=== PATIENT | female | born 1960 | race Caucasian/White ===

== ENCOUNTER 2020-10-21 18:24 | Inpatient (IN) ==
[2020-10-21] MEDS ORDERED: Ipratropium/Albuterol Neb 3 ML ONE (18:29)
[2020-10-21] MEDS ORDERED: methylPREDNISolone 125 MG/2 ML VIAL IVP ONE (18:32)
[2020-10-21] MEDS ORDERED: 0.9 % Sodium Chloride 1,000 ML IVC ONE ×2 (18:32→19:33)
[2020-10-21] MEDS ORDERED: Ipratropium/Albuterol Neb 3 ML IH ONE (18:32)
[2020-10-21] MEDS ORDERED: cefTRIAXone 1,000 MG in Water for inj. (sterile) 10 ML IVP ONE (18:32)
[2020-10-21] MEDS ORDERED: Azithromycin 500 MG in 0.9 % Sodium Chloride 250 ML IVPB ONE (18:32)
[2020-10-21 19:01] LABS: Hematocrit 30.3 % (35.3-44.9); Mean Corpuscular Hemoglobin 27.7 pg (28.0-33.3); Mean Corpuscular Volume 83.9 fL (83.0-100.0); Mean Platelet Volume 9.3 fL (9.4-12.4); Platelet Count 340 K/mcL (140-400); Red Blood Count 3.61 M/mcL (3.82-4.97); Red Cell Distribution Width 14.1 % (11.5-14.5); White Blood Count 23.2 K/mcL (4.3-11.1)
[2020-10-21 19:13] LABS: INR 1.5; Prothrombin Time 17.4 Seconds (9.4-12.1)
[2020-10-21 19:16] LABS: Activated Partial Thrombo Time 29.9 Seconds (26.0-36.0)
[2020-10-21 19:23] LABS: Calcium 8.6 mg/dL (8.6-10.3); Potassium 3.9 mEq/L (3.5-5.1)
[2020-10-21 19:26] LABS: Lymphocytes # 0.5 K/mcL (0.6-4.6); Monocytes # 0.5 K/mcL (0.0-1.3); Neutrophils # 20.9 K/mcL (1.6-8.9)
[2020-10-21 19:28] LABS: Troponin I 0.53 ng/mL (< 0.04)
[2020-10-21] MEDS ORDERED: Acetaminophen 325 MG TABLET PO ONE (19:32)
[2020-10-21] MEDS ORDERED: Isovue-370 500 ML BOTTLE IVP ONE (19:39)
[2020-10-21] MEDS ORDERED: Furosemide 40 MG/4 ML VIAL IVP ONE (19:45)
[2020-10-21] MEDS ORDERED: Aspirin 325 MG TABLET PO ONE (19:48)
[2020-10-21] MEDS ORDERED: *HR* Heparin 5,000 UNIT/ML VIAL IVP PRN (19:56)
[2020-10-21] MEDS ORDERED: *HR* Heparin 5,000 UNIT/ML VIAL IVP ONE (19:56)
[2020-10-21 20:18] LABS: Albumin 3.3 g/dL (3.5-5.7); Albumin/Globulin Ratio 0.7 (1.1-2.2); Bilirubin,Direct 0.2 mg/dL (0.0-0.2); Bilirubin,Indirect 0.7 mg/dL (0.0-1.0); Bilirubin,Total 0.9 mg/dL (0.3-1.0); Globulin 4.5 g/dL (2.4-3.5); Total Protein 7.8 g/dL (6.4-8.9)
[2020-10-21 20:35] LABS: Thyroid Stimulating Hormone 1.009 mcIU/mL (0.340-5.600)
[2020-10-21] MEDS: Heparin 25,000UNIT/250ML 1/2NS 25,000 UNIT/250 ML IV.SOLN IVC SCH (21:23)
[2020-10-21] MEDS: 0.9 % Sodium Chloride 1,000 ML IVC SCH (21:42)
[2020-10-21] MEDS ORDERED: Naloxone 0.4 MG/ML INJ IVP PRN (21:46)
[2020-10-21] MEDS ORDERED: Ondansetron 4 MG/2 ML VIAL IVP PRN (21:46)
[2020-10-21] MEDS ORDERED: Ipratropium/Albuterol Neb 3 ML IH PRN (21:59)
[2020-10-21 23:04] LABS: Hematocrit 29.8 % (35.3-44.9); Hemoglobin 9.4 g/dL (11.5-15.4); Mean Corpuscular HGB Conc 31.5 g/dL (31.6-35.5); Mean Corpuscular Hemoglobin 27.3 pg (28.0-33.3); Mean Corpuscular Volume 86.6 fL (83.0-100.0); Mean Platelet Volume 9.8 fL (9.4-12.4); Platelet Count 310 K/mcL (140-400); Red Blood Count 3.44 M/mcL (3.82-4.97); Red Cell Distribution Width 14.4 % (11.5-14.5); White Blood Count 24.3 K/mcL (4.3-11.1)
[2020-10-21] MEDS ORDERED: Perflutren Lipid Microsphere 1.3 ML in 0.9 % Sodium Chloride 8.7 ML IVP PRN (23:10)
[2020-10-21 23:12] LABS: Magnesium 1.7 mg/dL (1.6-2.6); Phosphorous 3.6 mg/dL (2.7-4.5)
[2020-10-21 23:13] LABS: Calcium 8.3 mg/dL (8.6-10.3); Potassium 3.9 mEq/L (3.5-5.1)
[2020-10-21] MEDS ORDERED: 0.9 % Sodium Chloride 500 ML IVC ONE (23:21)
[2020-10-21 23:28] LABS: Adenovirus Not Detected (Not Detect); Bordetella Pertussis Not Detected (Not Detect); Chlamydophila pneumoniae Not Detected (Not Detect); Coronavirus 229E Not Detected (Not Detect); Coronavirus HKU1 Not Detected (Not Detect); Coronavirus NL63 Not Detected (Not Detect); Coronavirus OC43 Not Detected (Not Detect); Human Metapneumovirus Not Detected (Not Detect); Human Rhinovirus/Enterovirus Not Detected (Not Detect); Influenza A Subtype 2009 H1 Not Detected (Not Detect); Influenza B Not Detected (Not Detect); Mycoplasma pneumoniae Not Detected (Not Detect); Parainfluenza Virus 1 Not Detected (Not Detect); Parainfluenza Virus 2 Not Detected (Not Detect); Parainfluenza Virus 3 Not Detected (Not Detect); Parainfluenza Virus 4 Not Detected (Not Detect); Respiratory Syncytial Virus Not Detected (Not Detect); SARS-CoV-2 Not Detected (Not Detect)
[2020-10-21] MEDS: Cefepime HCl 1,000 MG in Water for inj. (sterile) 10 ML IVP SCH (23:44)
[2020-10-21] MEDS: Acetaminophen 325 MG TABLET PO PRN (23:55)
[2020-10-22] MEDS ORDERED: Vancomycin 1,250 MG/262.5 ML IV.SOLN IVPB ONE
[2020-10-22] MEDS ORDERED: Morphine Sulfate 2 MG/ML SYRINGE IVP ONE (00:15)
[2020-10-22 02:41] LABS: Bilirubin,Urine Negative (Negative); Blood,Urine Negative (Negative); Clarity,Urine Clear (Clear); Color,Urine Yellow (Yellow); Glucose,Urine (UA) Normal (Normal); Ketones,Urine Negative (Negative); Leukocyte Esterase,Urine Negative (Negative); Nitrite,Urine Negative (Negative); Protein,Urine Negative (Neg-Trace); Specific Gravity,Urine > 1.030 (1.010-1.025); Urobilinogen,Urine Normal (Normal)
[2020-10-22 02:50] LABS: Creatinine,Urine 97 mg/dL; Sodium, Urine 18.4 mEq/L
[2020-10-22 02:52] LABS: Amphetamine Screen,Urine Negative ng/mL (Cutoff=1000); Barbiturate Screen,Urine Negative ng/mL (Cutoff=200); Benzodiazepines Screen,Urine Positive ng/mL (Cutoff=200); Cannabinoid Screen,Urine Negative ng/mL (Cutoff = 50); Cocaine Screen,Urine Negative ng/mL (Cutoff= 300); Opiate Screen,Urine Positive ng/mL (Cutoff=300); Phencyclidine Screen,Urine Negative ng/mL (Cutoff=25)
[2020-10-22 03:43] LABS: Red Cell Distribution Width 14.4 % (11.5-14.5)
[2020-10-22 03:44] LABS: Hematocrit 28.5 % (35.3-44.9); Hemoglobin 9.2 g/dL (11.5-15.4); Mean Corpuscular HGB Conc 32.3 g/dL (31.6-35.5); Mean Corpuscular Hemoglobin 27.3 pg (28.0-33.3); Mean Corpuscular Volume 84.6 fL (83.0-100.0); Mean Platelet Volume 9.6 fL (9.4-12.4); Platelet Count 303 K/mcL (140-400); Red Blood Count 3.37 M/mcL (3.82-4.97); White Blood Count 26.6 K/mcL (4.3-11.1)
[2020-10-22 03:53] LABS: Troponin I 0.84 ng/mL (< 0.04)
[2020-10-22 04:10] LABS: Albumin 3.1 g/dL (3.5-5.7); Albumin/Globulin Ratio 0.8 (1.1-2.2); Bilirubin,Total 0.5 mg/dL (0.3-1.0); Calcium 8.1 mg/dL (8.6-10.3); Globulin 4.1 g/dL (2.4-3.5); Total Protein 7.2 g/dL (6.4-8.9)
[2020-10-22] MEDS: 0.9 % Sodium Chloride 1,000 ML IVC SCH ×3 (05:02→21:49)
[2020-10-22] MEDS: Acetaminophen 325 MG TABLET PO PRN ×2 (05:35→22:12)
[2020-10-22] MEDS: Cefepime HCl 1,000 MG in Water for inj. (sterile) 10 ML IVP SCH (07:26)
[2020-10-22] MEDS: Morphine Sulfate 2 MG/ML SYRINGE IVP PRN ×4 (08:45→20:38)
[2020-10-22] MEDS: cefTRIAXone 2,000 MG in Water for inj. (sterile) 20 ML IVP SCH (08:45)
[2020-10-22 09:26] LABS: Calcium 8.2 mg/dL (8.6-10.3); Potassium 3.9 mEq/L (3.5-5.1)
[2020-10-22] MEDS: Aspirin Enteric Coated 81 MG Tablet PO SCH (09:46)
[2020-10-22] MEDS: *HR* HYDROcodone/Acet 5/325 mg TABLET PO PRN ×2 (10:53→16:56)
[2020-10-22 11:26] LABS: Folate > 22.3 ng/mL (3.0-16.0); Vitamin B12 614 pg/mL (250-1100)
[2020-10-22] MEDS: Ondansetron 4 MG/2 ML VIAL IVP PRN (13:59)
[2020-10-22] MEDS ORDERED: Vancomycin 1,250 MG/262.5 ML IV.SOLN IVPB SCH (18:00)
[2020-10-22] MEDS: DilTIAZem 50 MG/50 ML IV.SOLN IVC SCH (18:35)
[2020-10-22 19:05] LABS: ABG Base Excess -2 mEq/L (-2 to 3); ABG HCO3 22 mEq/L (21-27); ABG Oxygen Saturation 97 % (95-98); ABG PCO2 37 mmHg (35-45); ABG PH 7.39 pH Units (7.32-7.45); ABG PO2 94 mmHg (85-104); ABG TCO2 24 mEq/L (20-26); Blood Gas Modality ST
[2020-10-22] MEDS ORDERED: Azithromycin 500 MG in 0.9 % Sodium Chloride 250 ML IVPB SCH (21:00)
[2020-10-22] MEDS: Dexmedetomidine HCl 400 MCG/100 ML MLS IVC SCH (21:08)
[2020-10-22] MEDS: Heparin 25,000UNIT/250ML 1/2NS 25,000 UNIT/250 ML IV.SOLN IVC SCH (21:12)
[2020-10-23] MEDS: DilTIAZem 50 MG/50 ML IV.SOLN IVC SCH ×4 (00:35→23:07)
[2020-10-23] MEDS: Ondansetron 4 MG/2 ML VIAL IVP PRN (02:33)
[2020-10-23] MEDS: 0.9 % Sodium Chloride 1,000 ML IVC SCH ×3 (06:21→21:58)
[2020-10-23] MEDS: Morphine Sulfate 2 MG/ML SYRINGE IVP PRN ×4 (06:31→20:24)
[2020-10-23 08:45] LABS: Platelet Count 270 K/mcL (140-400); Red Cell Distribution Width 14.7 % (11.5-14.5)
[2020-10-23 08:47] LABS: Hematocrit 29.3 % (35.3-44.9); Hemoglobin 9.3 g/dL (11.5-15.4); Mean Corpuscular HGB Conc 31.7 g/dL (31.6-35.5); Mean Corpuscular Hemoglobin 27.8 pg (28.0-33.3); Mean Corpuscular Volume 87.5 fL (83.0-100.0); Mean Platelet Volume 10.1 fL (9.4-12.4); Red Blood Count 3.35 M/mcL (3.82-4.97); White Blood Count 29.1 K/mcL (4.3-11.1)
[2020-10-23] MEDS: cefTRIAXone 2,000 MG in Water for inj. (sterile) 20 ML IVP SCH (09:06)
[2020-10-23] MEDS: Aspirin Enteric Coated 81 MG Tablet PO SCH (09:06)
[2020-10-23 09:07] LABS: BUN/Creatinine Ratio 34 (6-26); Blood Urea Nitrogen 24 mg/dL (8-23); Calcium 8.2 mg/dL (8.6-10.3); Carbon Dioxide 22 mEq/L (23-29); Chloride 106 mEq/L (98-107); Glucose 89 mg/dL (70-105); Magnesium 2.7 mg/dL (1.6-2.6); Osmolality,Calculated 282 (280-300); Potassium 4.3 mEq/L (3.5-5.1); Sodium 134 mEq/L (136-145); eGFR For African Americans > 60 (> 60); eGFR For Non-African Americans > 60 (> 60)
[2020-10-23 09:08] LABS: Lymphocytes # 1.5 K/mcL (0.6-4.6); Monocytes # 0.3 K/mcL (0.0-1.3); Neutrophils # 27.4 K/mcL (1.6-8.9); Platelet Estimate Normal (Normal)
[2020-10-23] MEDS ORDERED: Calcium Gluconate 1gm/50mL 1 GM/50 ML BAG IVPB PRN (10:55)
[2020-10-23] MEDS ORDERED: Potassium Phosphate 44 MEQ in 0.9 % Sodium Chloride 250 ML IVPB PRN (10:55)
[2020-10-23] MEDS: Acetaminophen 325 MG TABLET PO PRN ×3 (11:06→23:02)
[2020-10-23] MEDS: *HR* Heparin 5,000 UNIT/ML VIAL IVP PRN ×2 (13:26→23:04)
[2020-10-23] MEDS: Vancomycin 1,250 MG/262.5 ML IV.SOLN IVPB SCH (13:50)
[2020-10-23 13:55] LABS: Hematocrit 27.1 % (35.3-44.9); Hemoglobin 8.5 g/dL (11.5-15.4); Mean Corpuscular HGB Conc 31.4 g/dL (31.6-35.5); Mean Corpuscular Hemoglobin 27.2 pg (28.0-33.3); Mean Corpuscular Volume 86.6 fL (83.0-100.0); Mean Platelet Volume 10.5 fL (9.4-12.4); Platelet Count 278 K/mcL (140-400); Red Blood Count 3.13 M/mcL (3.82-4.97); Red Cell Distribution Width 14.8 % (11.5-14.5); White Blood Count 26.6 K/mcL (4.3-11.1)
[2020-10-23 14:01] LABS: BUN/Creatinine Ratio 33 (6-26); Blood Urea Nitrogen 22 mg/dL (8-23); Carbon Dioxide 17 mEq/L (23-29); Chloride 107 mEq/L (98-107); Glucose 121 mg/dL (70-105); Osmolality,Calculated 279 (280-300); Sodium 132 mEq/L (136-145); eGFR For African Americans > 60 (> 60); eGFR For Non-African Americans > 60 (> 60)
[2020-10-23 14:32] LABS: Hypochromasia Present (Not Present); Lymphocytes # 2.1 K/mcL (0.6-4.6); Neutrophils # 24.5 K/mcL (1.6-8.9); Platelet Estimate Normal (Normal)
[2020-10-23 14:33] LABS: Anisocytosis 1+ (Not Present)
[2020-10-23] MEDS: Heparin 25,000UNIT/250ML 1/2NS 25,000 UNIT/250 ML IV.SOLN IVC SCH (22:58)
[2020-10-23] MEDS: Dexmedetomidine HCl 400 MCG/100 ML MLS IVC SCH (23:22)
[2020-10-24] MEDS: Morphine Sulfate 2 MG/ML SYRINGE IVP PRN ×6 (01:11→21:06)
[2020-10-24] MEDS: Vancomycin 1,250 MG/262.5 ML IV.SOLN IVPB SCH (02:37)
[2020-10-24 03:18] LABS: Basophils % 0.1 %; Eosinophils % 0.2 %; Hematocrit 28.8 % (35.3-44.9); Hemoglobin 9.1 g/dL (11.5-15.4); Immature Granulocytes % 0.6 % (0-4); Lymphocytes # 1.1 K/mcL (0.6-4.6); Lymphocytes % 4.4 %; Mean Corpuscular HGB Conc 31.6 g/dL (31.6-35.5); Mean Corpuscular Hemoglobin 27.5 pg (28.0-33.3); Mean Platelet Volume 10.2 fL (9.4-12.4); Monocytes # 0.7 K/mcL (0.0-1.3); Monocytes % 2.9 %; Neutrophils # 22.3 K/mcL (1.6-8.9); Platelet Count 299 K/mcL (140-400); Red Blood Count 3.31 M/mcL (3.82-4.97); Red Cell Distribution Width 14.8 % (11.5-14.5); Segmented Neutrophils % 91.8 %; White Blood Count 24.3 K/mcL (4.3-11.1)
[2020-10-24 03:26] LABS: Eosinophils # 0.1 K/mcL (0.0-0.6)
[2020-10-24 03:41] LABS: BUN/Creatinine Ratio 27 (6-26); Blood Urea Nitrogen 14 mg/dL (8-23); Carbon Dioxide 20 mEq/L (23-29); Chloride 106 mEq/L (98-107); Glucose 85 mg/dL (70-105); Osmolality,Calculated 276 (280-300); Potassium 3.7 mEq/L (3.5-5.1); Sodium 133 mEq/L (136-145); eGFR For African Americans > 60 (> 60); eGFR For Non-African Americans > 60 (> 60)
[2020-10-24 03:48] LABS: Anisocytosis 1+ (Not Present); Platelet Estimate Normal (Normal)
[2020-10-24] MEDS: Dexmedetomidine HCl 400 MCG/100 ML MLS IVC SCH ×2 (05:37→06:45)
[2020-10-24] MEDS: 0.9 % Sodium Chloride 1,000 ML IVC SCH (06:45)
[2020-10-24] MEDS: cefTRIAXone 2,000 MG in Water for inj. (sterile) 20 ML IVP SCH (08:32)
[2020-10-24] MEDS: Acetaminophen 325 MG TABLET PO PRN ×3 (08:32→19:24)
[2020-10-24] MEDS: Aspirin Enteric Coated 81 MG Tablet PO SCH (08:32)
[2020-10-24] MEDS: DilTIAZem 50 MG/50 ML IV.SOLN IVC SCH (08:33)
[2020-10-24] MEDS ORDERED: Morphine Sulfate 2 MG/ML SYRINGE IVP ONE (12:46)
[2020-10-24 13:46] LABS: BUN/Creatinine Ratio 21 (6-26); Blood Urea Nitrogen 10 mg/dL (8-23); Carbon Dioxide 20 mEq/L (23-29); Chloride 106 mEq/L (98-107); Glucose 88 mg/dL (70-105); Osmolality,Calculated 274 (280-300); Potassium 3.6 mEq/L (3.5-5.1); Sodium 133 mEq/L (136-145); eGFR For African Americans > 60 (> 60); eGFR For Non-African Americans > 60 (> 60)
[2020-10-24] MEDS: *HR* Heparin 5,000 UNIT/ML VIAL SQ SCH (16:20)
[2020-10-24] MEDS: Doxycycline 100 MG in 0.9 % Sodium Chloride Mini Bag 100 ML IVPB SCH (17:50)
[2020-10-25] MEDS: *HR* Heparin 5,000 UNIT/ML VIAL SQ SCH ×4 (00:22→23:04)
[2020-10-25] MEDS: Acetaminophen 325 MG TABLET PO PRN ×4 (01:02→20:54)
[2020-10-25] MEDS: Morphine Sulfate 2 MG/ML SYRINGE IVP PRN ×2 (01:12→06:02)
[2020-10-25 04:47] LABS: VBG Ionized Calcium 1.23 mmol/L (1.15-1.35)
[2020-10-25 05:06] LABS: BUN/Creatinine Ratio 21 (6-26); Blood Urea Nitrogen 9 mg/dL (8-23); Calcium 8.3 mg/dL (8.6-10.3); Carbon Dioxide 22 mEq/L (23-29); Chloride 106 mEq/L (98-107); Glucose 96 mg/dL (70-105); Osmolality,Calculated 275 (280-300); Phosphorous 2.4 mg/dL (2.7-4.5); Potassium 3.5 mEq/L (3.5-5.1); Sodium 133 mEq/L (136-145); eGFR For African Americans > 60 (> 60); eGFR For Non-African Americans > 60 (> 60)
[2020-10-25 05:09] LABS: White Blood Count 10.7 K/mcL (4.3-11.1)
[2020-10-25 05:10] LABS: Red Blood Count 2.91 M/mcL (3.82-4.97)
[2020-10-25 05:11] LABS: Basophils % 0.2 %; Eosinophils # 0.2 K/mcL (0.0-0.6); Eosinophils % 1.5 %; Hematocrit 24.5 % (35.3-44.9); Immature Granulocytes % 0.7 % (0-4); Lymphocytes # 1.2 K/mcL (0.6-4.6); Lymphocytes % 11.1 %; Mean Corpuscular HGB Conc 32.7 g/dL (31.6-35.5); Mean Corpuscular Hemoglobin 27.5 pg (28.0-33.3); Mean Corpuscular Volume 84.2 fL (83.0-100.0); Monocytes # 0.9 K/mcL (0.0-1.3); Monocytes % 8.2 %; Neutrophils # 8.4 K/mcL (1.6-8.9); Platelet Count 289 K/mcL (140-400); Red Cell Distribution Width 14.6 % (11.5-14.5); Segmented Neutrophils % 78.3 %
[2020-10-25] MEDS: Doxycycline 100 MG in 0.9 % Sodium Chloride Mini Bag 100 ML IVPB SCH ×2 (05:56→18:29)
[2020-10-25] MEDS: Aspirin Enteric Coated 81 MG Tablet PO SCH (08:10)
[2020-10-25] MEDS: cefTRIAXone 2,000 MG in Water for inj. (sterile) 20 ML IVP SCH (08:12)
[2020-10-25 12:08] LABS: Potassium 3.7 mEq/L (3.5-5.1)
[2020-10-25] MEDS: *HR* HYDROcodone/Acet 5/325 mg TABLET PO PRN (15:50)
[2020-10-25] MEDS: Diclofenac Sodium (DR) 75 MG TABLET.DR PO SCH ×2 (16:44→20:55)
[2020-10-25] MEDS ORDERED: Temazepam 15 MG CAPSULE PO SCH (21:00)
[2020-10-25] MEDS ORDERED: Vancomycin 1,000 MG VIAL ONE (23:02)
[2020-10-25] MEDS ORDERED: 0.9 % Sodium Chloride 250 ML ONE (23:02)
[2020-10-26] MEDS: *HR* HYDROcodone/Acet 5/325 mg TABLET PO PRN ×3 (00:39→22:55)
[2020-10-26 05:15] LABS: VBG Ionized Calcium 1.22 mmol/L (1.15-1.35)
[2020-10-26 05:21] LABS: Basophils % 0.4 %; Eosinophils # 0.3 K/mcL (0.0-0.6); Hematocrit 26.8 % (35.3-44.9); Hemoglobin 8.7 g/dL (11.5-15.4); Immature Granulocytes % 1.8 % (0-4); Lymphocytes # 1.4 K/mcL (0.6-4.6); Lymphocytes % 16.5 %; Mean Corpuscular HGB Conc 32.5 g/dL (31.6-35.5); Mean Corpuscular Volume 83.2 fL (83.0-100.0); Mean Platelet Volume 9.9 fL (9.4-12.4); Monocytes # 0.9 K/mcL (0.0-1.3); Monocytes % 9.9 %; Neutrophils # 5.8 K/mcL (1.6-8.9); Platelet Count 355 K/mcL (140-400); Red Blood Count 3.22 M/mcL (3.82-4.97); Red Cell Distribution Width 14.6 % (11.5-14.5); Segmented Neutrophils % 67.4 %
[2020-10-26 05:23] LABS: White Blood Count 8.6 K/mcL (4.3-11.1)
[2020-10-26 05:32] LABS: BUN/Creatinine Ratio 17 (6-26); Blood Urea Nitrogen 9 mg/dL (8-23); Calcium 8.5 mg/dL (8.6-10.3); Carbon Dioxide 24 mEq/L (23-29); Chloride 107 mEq/L (98-107); Glucose 99 mg/dL (70-105); Magnesium 1.8 mg/dL (1.6-2.6); Osmolality,Calculated 283 (280-300); Phosphorous 3.2 mg/dL (2.7-4.5); Potassium 3.6 mEq/L (3.5-5.1); Sodium 137 mEq/L (136-145); eGFR For African Americans > 60 (> 60); eGFR For Non-African Americans > 60 (> 60)
[2020-10-26] MEDS: Doxycycline 100 MG in 0.9 % Sodium Chloride Mini Bag 100 ML IVPB SCH (06:52)
[2020-10-26] MEDS: Aspirin Enteric Coated 81 MG Tablet PO SCH (08:25)
[2020-10-26] MEDS: *HR* Heparin 5,000 UNIT/ML VIAL SQ SCH (08:25)
[2020-10-26] MEDS: Diclofenac Sodium (DR) 75 MG TABLET.DR PO SCH (08:25)
[2020-10-26] MEDS: cefTRIAXone 2,000 MG in Water for inj. (sterile) 20 ML IVP SCH (09:10)
[2020-10-26] MEDS ORDERED: Perflutren Lipid Microsphere 1.3 ML in 0.9 % Sodium Chloride 8.7 ML IVP PRN (11:49)
[2020-10-26] MEDS ORDERED: Calcium Gluconate 1gm/50mL 1 GM/50 ML BAG IVPB PRN (11:49)
[2020-10-26] MEDS ORDERED: Ipratropium/Albuterol Neb 3 ML IH PRN (11:49)
[2020-10-26] MEDS ORDERED: Naloxone 0.4 MG/ML INJ IVP PRN (11:49)
[2020-10-26] MEDS ORDERED: Potassium Phosphate 44 MEQ in 0.9 % Sodium Chloride 250 ML IVPB PRN (11:49)
[2020-10-26] MEDS: DilTIAZem CD (24hr) 120 MG CAP.ER.24H PO SCH (13:16)
[2020-10-26] MEDS: Acetaminophen 325 MG TABLET PO PRN (13:16)
[2020-10-26] MEDS: *HR* LORazepam 0.5 MG TABLET PO PRN ×2 (18:58→22:55)
[2020-10-26] MEDS ORDERED: 0.9 % Sodium Chloride 250 ML ONE (22:50)
[2020-10-26] MEDS ORDERED: Vancomycin 1,000 MG VIAL ONE (22:50)
[2020-10-26] MEDS: Doxycycline 100 MG CAPSULE PO SCH (22:55)
[2020-10-27] MEDS: Acetaminophen 325 MG TABLET PO PRN ×2 (06:28→14:17)
[2020-10-27] MEDS: *HR* LORazepam 0.5 MG TABLET PO PRN ×3 (06:39→19:52)
[2020-10-27] MEDS: cefTRIAXone 2,000 MG in Water for inj. (sterile) 20 ML IVP SCH (09:29)
[2020-10-27] MEDS: Doxycycline 100 MG CAPSULE PO SCH ×2 (09:31→19:52)
[2020-10-27] MEDS: Aspirin Enteric Coated 81 MG Tablet PO SCH (09:31)
[2020-10-27] MEDS: DilTIAZem CD (24hr) 120 MG CAP.ER.24H PO SCH (09:31)
[2020-10-27] MEDS: Ipratropium/Albuterol Neb 3 ML IH SCH ×3 (12:10→22:12)
[2020-10-27] MEDS: *HR* Heparin 5,000 UNIT/ML VIAL SQ SCH ×2 (14:17→20:01)
[2020-10-27] MEDS: polyethylene glycoL 3350 17 GM POWD.PACK PO SCH (14:18)
[2020-10-27] MEDS: *HR* HYDROcodone/Acet 5/325 mg TABLET PO PRN (19:53)
[2020-10-27] MEDS: Temazepam 15 MG CAPSULE PO PRN (22:07)
[2020-10-28 01:20] LABS: Basophils % 0.4 %; Eosinophils # 0.5 K/mcL (0.0-0.6); Eosinophils % 5.7 %; Hematocrit 26.2 % (35.3-44.9); Hemoglobin 8.7 g/dL (11.5-15.4); Immature Granulocytes % 2.2 % (0-4); Lymphocytes % 24.7 %; Mean Corpuscular HGB Conc 33.2 g/dL (31.6-35.5); Mean Corpuscular Hemoglobin 27.5 pg (28.0-33.3); Mean Corpuscular Volume 82.9 fL (83.0-100.0); Mean Platelet Volume 9.8 fL (9.4-12.4); Monocytes # 0.7 K/mcL (0.0-1.3); Monocytes % 8.1 %; Neutrophils # 4.9 K/mcL (1.6-8.9); Nucleated Red Blood Cells 0.2 /100 WBC (0); Platelet Count 440 K/mcL (140-400); Red Blood Count 3.16 M/mcL (3.82-4.97); Red Cell Distribution Width 14.7 % (11.5-14.5); Segmented Neutrophils % 58.9 %; White Blood Count 8.3 K/mcL (4.3-11.1)
[2020-10-28 01:23] LABS: Lymphocytes # 2.1 K/mcL (0.6-4.6)
[2020-10-28 01:39] LABS: BUN/Creatinine Ratio 17 (6-26); Blood Urea Nitrogen 8 mg/dL (8-23); Calcium 8.6 mg/dL (8.6-10.3); Carbon Dioxide 27 mEq/L (23-29); Chloride 102 mEq/L (98-107); Glucose 104 mg/dL (70-105); Osmolality,Calculated 283 (280-300); Potassium 3.5 mEq/L (3.5-5.1); Sodium 137 mEq/L (136-145); eGFR For African Americans > 60 (> 60); eGFR For Non-African Americans > 60 (> 60)
[2020-10-28] MEDS: Acetaminophen 325 MG TABLET PO PRN ×2 (03:35→08:22)
[2020-10-28] MEDS: Ipratropium/Albuterol Neb 3 ML IH SCH ×4 (03:37→22:02)
[2020-10-28] MEDS: *HR* Heparin 5,000 UNIT/ML VIAL SQ SCH ×3 (05:15→20:19)
[2020-10-28] MEDS: polyethylene glycoL 3350 17 GM POWD.PACK PO SCH (08:14)
[2020-10-28] MEDS: cefTRIAXone 2,000 MG in Water for inj. (sterile) 20 ML IVP SCH (08:14)
[2020-10-28] MEDS: Aspirin Enteric Coated 81 MG Tablet PO SCH (08:15)
[2020-10-28] MEDS: DilTIAZem CD (24hr) 120 MG CAP.ER.24H PO SCH (08:16)
[2020-10-28] MEDS: Doxycycline 100 MG CAPSULE PO SCH ×2 (08:16→20:14)
[2020-10-28] MEDS: *HR* HYDROcodone/Acet 5/325 mg TABLET PO PRN ×2 (11:23→20:16)
[2020-10-28] MEDS: *HR* LORazepam 0.5 MG TABLET PO PRN ×2 (15:55→20:17)
[2020-10-28] MEDS: Temazepam 15 MG CAPSULE PO PRN (20:18)
[2020-10-29] MEDS: Ipratropium/Albuterol Neb 3 ML IH SCH ×4 (03:48→21:53)
[2020-10-29] MEDS: *HR* Heparin 5,000 UNIT/ML VIAL SQ SCH ×3 (05:38→22:21)
[2020-10-29] MEDS: Acetaminophen 325 MG TABLET PO PRN ×3 (05:41→15:56)
[2020-10-29 06:40] LABS: Basophils # 0.1 K/mcL (0.0-0.2); Basophils % 0.7 %; Eosinophils # 0.6 K/mcL (0.0-0.6); Eosinophils % 7.8 %; Hematocrit 31.6 % (35.3-44.9); Hemoglobin 9.7 g/dL (11.5-15.4); Immature Granulocytes % 1.5 % (0-4); Lymphocytes % 27.5 %; Mean Corpuscular HGB Conc 30.7 g/dL (31.6-35.5); Mean Corpuscular Hemoglobin 26.4 pg (28.0-33.3); Mean Corpuscular Volume 85.9 fL (83.0-100.0); Monocytes # 0.5 K/mcL (0.0-1.3); Monocytes % 7.1 %; Platelet Count 602 K/mcL (140-400); Red Blood Count 3.68 M/mcL (3.82-4.97); Red Cell Distribution Width 15.2 % (11.5-14.5); Segmented Neutrophils % 55.4 %; White Blood Count 7.2 K/mcL (4.3-11.1)
[2020-10-29] MEDS: Aspirin Enteric Coated 81 MG Tablet PO SCH (09:10)
[2020-10-29] MEDS: Doxycycline 100 MG CAPSULE PO SCH ×2 (09:10→19:23)
[2020-10-29] MEDS: DilTIAZem CD (24hr) 120 MG CAP.ER.24H PO SCH (09:10)
[2020-10-29] MEDS: cefTRIAXone 2,000 MG in Water for inj. (sterile) 20 ML IVP SCH (09:12)
[2020-10-29] MEDS: polyethylene glycoL 3350 17 GM POWD.PACK PO SCH (09:13)
[2020-10-29] MEDS: *HR* LORazepam 0.5 MG TABLET PO PRN ×2 (15:56→22:21)
[2020-10-29] MEDS: *HR* HYDROcodone/Acet 5/325 mg TABLET PO PRN (19:25)
[2020-10-29] MEDS: Temazepam 15 MG CAPSULE PO PRN (22:21)
[2020-10-30] MEDS: Ipratropium/Albuterol Neb 3 ML IH SCH ×4 (03:49→21:31)
[2020-10-30] MEDS: Acetaminophen 325 MG TABLET PO PRN ×3 (05:52→21:15)
[2020-10-30] MEDS: *HR* Heparin 5,000 UNIT/ML VIAL SQ SCH ×3 (05:53→21:12)
[2020-10-30] MEDS: DilTIAZem CD (24hr) 120 MG CAP.ER.24H PO SCH (08:54)
[2020-10-30] MEDS: Doxycycline 100 MG CAPSULE PO SCH ×2 (08:54→21:11)
[2020-10-30] MEDS: Aspirin Enteric Coated 81 MG Tablet PO SCH (08:55)
[2020-10-30] MEDS: cefTRIAXone 2,000 MG in Water for inj. (sterile) 20 ML IVP SCH (08:55)
[2020-10-30] MEDS: polyethylene glycoL 3350 17 GM POWD.PACK PO SCH (08:55)
[2020-10-30] MEDS: *HR* HYDROcodone/Acet 5/325 mg TABLET PO PRN (18:34)
[2020-10-30] MEDS: Temazepam 15 MG CAPSULE PO PRN (21:09)
[2020-10-30] MEDS: *HR* LORazepam 0.5 MG TABLET PO PRN (21:10)
[2020-10-31] MEDS: Ipratropium/Albuterol Neb 3 ML IH SCH ×2 (03:19→07:15)
[2020-10-31] MEDS: *HR* Heparin 5,000 UNIT/ML VIAL SQ SCH (06:15)
[2020-10-31 06:46] VITALS: BP 121/67; PULSE 71; TEMP 97.9
[2020-10-31] MEDS: Doxycycline 100 MG CAPSULE PO SCH (08:05)
[2020-10-31] MEDS: Aspirin Enteric Coated 81 MG Tablet PO SCH (08:05)
[2020-10-31] MEDS: Acetaminophen 325 MG TABLET PO PRN (08:12)
[2020-10-31] MEDS: DilTIAZem CD (24hr) 120 MG CAP.ER.24H PO SCH (08:13)
[2020-10-31] MEDS: polyethylene glycoL 3350 17 GM POWD.PACK PO SCH (08:13)
[2020-10-31] MEDS: cefTRIAXone 2,000 MG in Water for inj. (sterile) 20 ML IVP SCH (08:13)
[2020-10-31 08:24] VITALS: O2SAT 90
== END 2020-10-31 11:49 | disposition home health service (06) | DRG 871 ==
LOC: ICNU 18:24 → EMEROOARM 18:24 → ICNU 21:35 → SUATTDRO 10-22 00:20 → 2ANU 10-26 14:34
PROVIDERS: ADMIT Family Medicine; ATTEND Family Medicine